=== PATIENT | female | born 1995 | race Caucasian/White ===

== ENCOUNTER 2022-07-26 20:03 | Emergency (ER) | payer OTHER ==
[2022-07-26 20:10] VITALS: BMI 28.5
[2022-07-26 22:02] VITALS: RESP 16; TEMP 98.2
[2022-07-26 22:47] LABS: OPIATES, URI NEGATIVE (NEGATIVE)
[2022-07-26 22:49] LABS: METHADONE, UR NEGATIVE (NEGATIVE); PHENCYCLIDINE,URINE NEGATIVE (NEGATIVE); URINE BARBITURATES NEGATIVE (NEGATIVE)
[2022-07-26 22:59] LABS: COCAINE, UR NEGATIVE (NEGATIVE); URINE AMPHETAMINES NEGATIVE (NEGATIVE); URINE BENZODIAZEPINES NEGATIVE (NEGATIVE)
[2022-07-26 23:31] VITALS: BP 133/87; PULSE 74
== END 2022-07-26 22:22 | disposition home or self-care (01) ==
LOC: JER 20:03
DX: O16.3 Unspecified maternal hypertension, third trimester (principal); Z3A.38 38 weeks gestation of pregnancy
CPT/HCPCS: 80307; 99283-25